=== PATIENT | male | born 1995 | race American Indian/Alaskan Native ===

== ENCOUNTER 2016-11-06 15:54 | Emergency (ER) | payer MEDICAID ==
[2016-11-06 16:05] VITALS: BP 122/61; PULSE 75; RESP 16; TEMP 99.5; O2SAT 99
[2016-11-06] MEDS ORDERED: Albuterol-Ipratrop 3 mg / 0.5 (3 ml) UD INH STA (16:08)
--- NOTE | 2016-11-06 16:13 | ED PDOC ---
HPI: Asthma Time Seen by Provider: 11/06/16 16:05 Chief Complaint (Nursing): Cough, Cold, Congestion Chief Complaint (Provider): Asthma History Per: Patient History/Exam Limitations: no limitations Onset/Duration Of Symptoms: Hrs Current Symptoms Are (Timing): Still Present Additional Complaint(s): Allen Haq is a 21 year old male with a history of asthma that presents to the ED after he realized he ran out of his inhaler earlier today. Patient denies frequent use of inhaler. He reports that he had a cold last week, but denies any fevers or chills. Past Medical History Reviewed: Historical Data, Nursing Documentation, Vital Signs Vital Signs: Last Vital Signs Temp 99.5 F 11/06/16 16:02 Pulse 75 11/06/16 16:02 Resp 16 11/06/16 16:02 BP 122/61 11/06/16 16:02 Pulse Ox 99 11/06/16 16:02 - Medical History PMH: Asthma - Family History Family History: States: Unknown Family Hx - Immunization History Hx Tetanus Toxoid Vaccination: Yes Hx Influenza Vaccination: Yes Hx Pneumococcal Vaccination: No - Home Medications Home Medications: Ambulatory Orders Medication Instructions Recorded Albuterol HFA [Ventolin HFA 90 0.09 mg IH Q4 PRN #1 puff 06/19/14 mcg/actuation (8 g)] Lopid 06/19/14 Ventolin Hfa 2 puff PO ONCE PRN 06/19/14 Albuterol HFA [Ventolin HFA 90 2 puff IH Q4 PRN #1 inhaler 09/12/15 mcg/actuation (8 g)] Fluticasone Propionate [Flovent 2 puff IH BID #1 inh 09/12/15 Hfa] Albuterol HFA [Ventolin HFA 90 2 puff IH [id number] PRN #1 inhaler 11/06/16 mcg/actuation (8 g)] predniSONE [predniSONE Tab] 2 tab PO DAILY #10 tab 11/06/16 - Allergies Allergies/Adverse Reactions: Allergies Allergy/AdvReac Type Severity Reaction Status Date / Time banana Allergy SWELLING Verified 09/12/15 22:03 shellfish derived Allergy SWELLING Verified 09/12/15 22:03 Review of Systems Constitutional: Negative for: Fever, Chills Respiratory: Positive for: Wheezing (b/l) Physical Exam - Reviewed Nursing Documentation Reviewed: Yes Vital Signs Reviewed: Yes - Physical Exam Appears: Positive for: Non-toxic, No Acute Distress Head Exam: Positive for: ATRAUMATIC, NORMOCEPHALIC Skin: Positive for: Normal Color, Warm Cardiovascular/Chest: Positive for: Regular Rate, Rhythm. Negative for: Murmur Respiratory: Positive for: Wheezing (b/l). Negative for: Normal Breath Sounds Neurologic/Psych: Positive for: Alert, Oriented. Negative for: Motor/Sensory Deficits - ECG O2 Sat by Pulse Oximetry: 99 (RA) Pulse Ox Interpretation: Normal - Progress ED Course And Treament: DUONEB X 1 DOSE PATIENT RE-EVALUATED WITH IMPROVEMENT OF WHEEZING. Medical Decision Making Medical Decision Making: Impression: Asthma Exacerbation Plan: * Albuterol 3 ml INH * Peak Flow Pre/Post Tx * Reevaluation Scribe Attestation: Documented by Jaida Mcfarlane, acting as a scribe for Colleen Stubbs PA-C. Provider Scribe Attestation: All medical record entries made by the Scribe were at my direction and personally dictated by me. I have reviewed the chart and agree that the record accurately reflects my personal performance of the history, physical exam, medical decision making, and the department course for this patient. I have also personally directed, reviewed, and agree with the discharge instructions and disposition. Disposition - Clinical Impression Clinical Impression: Viral illness, Asthma exacerbation - Patient ED Disposition Is Patient to be Admitted: No - Disposition Disposition: Routine/Home Disposition Time: 17:00 Condition: FAIR Prescriptions: Albuterol HFA [Ventolin HFA 90 mcg/actuation (8 g)] 2 puff IH [id number] PRN #1 inhaler PRN Reason: Shortness Of Breath predniSONE [predniSONE Tab] 2 tab PO DAILY #10 tab Instructions: Reactive Airways Disease (GEN), Upper Respiratory Infection (ED) Forms: GIGAS (Monegasque)
[2016-11-06] MEDS ORDERED: Albuterol-Ipratrop 3 mg / 0.5 (3 ml) UD ONE (16:18)
== END 2016-11-06 17:26 | disposition home or self-care (01) ==
LOC: H.ER 15:54
DX: J45.901 Unspecified asthma with (acute) exacerbation (principal); B34.9 Viral infection, unspecified